=== PATIENT | male | born 1950 | race Caucasian/White ===

== ENCOUNTER 2021-04-08 19:03 | Emergency (ER) | payer OTHER, SELFPAY ==
--- NOTE | ~2021-04-08 | CT_ITS ---
EXAMINATION: HEAD CT WITHOUT CONTRAST CERVICAL SPINE CT WITHOUT CONTRAST CLINICAL INFORMATION: Fall, head trauma. COMPARISON: None. TECHNIQUE: Contiguous axial imaging of the head was performed without the administration of IV contrast. Axial multidetector volumetric images were also performed through the cervical spine without intravenous contrast. Multiplanar reconstructed images in coronal and sagittal orientations were submitted. This CT examination was performed using dose optimization techniques as appropriate, variously including the following: *Automated exposure control *Adjustment of mA and/or kV according to patient size (this includes techniques or standardized protocols for targeted exams where dose is matched to indication/reason for exam; i.e. extremities or head) *Use of iterative reconstruction technique DOSE: 857 and 624 mGy-cm FINDINGS: HEAD: There is no evidence of acute intracranial hemorrhage or territorial infarction. No abnormal mass-effect or midline shift. No extra-axial fluid collections. Bird to white matter differentiation is well preserved. The ventricles are normal in size and configuration. There is no abnormal attenuation within the brain parenchyma. The soft tissues and osseous structures are normal. The sinuses and mastoid air cells are clear. CERVICAL SPINE: Vertebral body heights are normal. No fractures of the vertebral bodies or posterior elements. Vertebral alignment is normal. No subluxation. The craniocervical and atlantoaxial articulations are otherwise normal. Marginal osteophytes are present at the articulation of the dens and the anterior arch of C1. There is moderate degenerative disc disease at C4-C5, C5-C6, and C6-C7 with loss of vertebral disc height, endplate osteophytes, and uncovertebral osteophytes. More mild degenerative disc disease is present at all levels. Facet joints appear relatively well-preserved. Small posterior disc osteophyte bulges the cervical spine at C4-C5, C5-C6 and C6-C7 likely combined with a component of developmental central canal narrowing to produce stenoses, most notably at C4-C5. Uncovertebral osteophytes also contribute to bilateral neural foraminal stenoses at these levels as well. No significant paravertebral soft tissue swelling. Atherosclerotic calcifications are present in the carotid arteries. Imaged portions of the lung apices are clear. CT/CT cervical spine wo con IMPRESSION: 1. No acute intracranial pathology. 2. No acute fracture or malalignment in the cervical spine. 3. Multilevel degenerative disc disease in the cervical spine, most notably from C4-C5 through C6-C7. There are associated central canal or neural foraminal stenoses at these levels.
--- NOTE | ~2021-04-08 | CT_ITS ---
EXAMINATION: CT OF THE THORACIC SPINE WITHOUT CONTRAST CT OF THE LUMBAR SPINE WITHOUT CONTRAST CLINICAL INFORMATION: Back pain. COMPARISON: None. TECHNIQUE: Multidetector volumetric imaging was obtained through the thoracic spine and lumbar spine spine without intravenous contrast. Multiplanar reconstructed images in coronal and sagittal orientations were submitted. This CT examination was performed using dose optimization techniques as appropriate, variously including the following: *Automated exposure control *Adjustment of mA and/or kV according to patient size (this includes techniques or standardized protocols for targeted exams where dose is matched to indication/reason for exam; i.e. extremities or head) *Use of iterative reconstruction technique DOSE: 521 and 400 mGy-cm FINDINGS: Thoracic spine: Vertebral body heights appear normal. No significant chronic compression deformities are identified. There is diffuse ankylosis in the thoracic spine with ossification of the anterior longitudinal ligament and prominent bridging osteophytes, most consistent with diffuse idiopathic skeletal hyperostosis. As seen on sagittal image 59/62 of series 92, there is a transverse lucency through the bridging osteophyte at the right anterolateral aspect of the T6 superior endplate, most concerning for a nondisplaced fracture. This fracture line likely extends into the adjacent disc. No additional fractures are identified at this level. Posterior elements appear intact in this region. There is a nondisplaced fracture through the anterior cortex of the T11 vertebral body with extension into the anterior aspect of the superior endplate as well as questionable fracture of the right lateral bridging osteophyte as well. No appreciable involvement of the posterior or middle columns. No additional fractures are identified in the thoracic spine. There is multilevel facet arthropathy. Mild hyperkyphosis is noted. Central canal appears patent. Dependent atelectasis is present in the lungs. Paraspinal soft tissues are unremarkable. Lumbar spine: There is mild to moderate degenerative disc disease in the upper lumbar spine at L1-L2. Vertebral body heights are normal. No fractures. No spondylolisthesis. Mild multilevel facet arthropathy is present in the lumbar spine. There is at least moderate central canal narrowing in the lumbar spine at the level of L3-L4 and L4-L5 due to disc bulges, ligamentous labrum thickening, and facet arthropathy. Pedicles appear relatively short in the lumbar spine is also likely contributes the central canal narrowing. The short pedicles also produce neural foraminal encroachment which is most notable on the right at L5-S1, though multilevel neural foraminal encroachment is suspected. Calcific atherosclerosis is present in the abdominal aorta and iliac arteries. There is a 3 mm calculus within a calyx in the left lower renal pole. No obstructive uropathy is identified on these images, though the ureters are not fully imaged. CT/CT thoracic spine wo con IMPRESSION: Thoracic spine: 1. Nondisplaced fracture through the anterior cortex of the T11 vertebral body without appreciable involvement of the posterior or middle columns. 2. Nondisplaced fracture through the right anterolateral bridging osteophyte at the T6 superior endplate. No involvement of the posterior or middle columns. 3. Diffuse idiopathic skeletal hyperostosis is ankylosis of much of the thoracic spine. Lumbar spine: Mild to moderate multilevel degenerative spondylosis in the lumbar spine without acute fracture or malalignment. Nonobstructing left nephrolithiasis
--- NOTE | ~2021-04-08 | XR_ITS ---
EXAMINATION: XR HAND/WRIST, LEFT CLINICAL INFORMATION: Pain status post fall. COMPARISON: None TECHNIQUE: PA, lateral, and oblique views of the left hand and wrist. Scaphoid view of the wrist. FINDINGS: No acute fracture or malalignment. Bone mineralization is normal. Minimal osteoarthritis of the first CMC joint. No erosions. Mild soft tissue swelling in the hand. Calcific atherosclerosis in the radial artery. XR/XR hand wrist LT IMPRESSION: No acute fracture or malalignment in the left hand and wrist.
[2021-04-08 19:16] VITALS: BP 150/76; PULSE 80; RESP 18; TEMP 36.8; O2SAT 97; BMI 28.7
--- NOTE | 2021-04-08 19:53 | PC.NURSE ---
Pt from home, CAOx4, speaking full sentences. Pt explains that his blood sugar earlier in the morning was in the 80s, pt self reports taking oral Metformin. Around noon, pt had an episode of feeling weak/dizzy, pt fell onto the floor, injuring his left hand and the right side of his lower back. Pt states that after the fall, his POC was noted to be 70 mg/dl. Pt states he ate a tablespoon of sugar, POC increasing to 105. Pt reports relief of weakness/dizziness once BS increased. Pt arriving to the ED for an eval due to lower back pain and left hand pain after the fall. VSS. Awaiting primary MD eval. Continue to monitor.
[2021-04-08 19:56] LABS: Glucose, Whole Blood 109 mg/dL (60-115)
--- NOTE | 2021-04-08 20:04 | ECG_ITS ---
Test Reason : DIZZINESS/FALL Blood Pressure : / mmHG Vent. Rate : 074 BPM Atrial Rate : 074 BPM P-R Int : 190 ms QRS Dur : 084 ms QT Int : 398 ms P-R-T Axes : 016 -08 -01 degrees QTc Int : 441 ms Normal sinus rhythm Normal ECG No previous ECGs available Referred By: Selina Aquino Electronically Signed By:DAYTON BOB
--- NOTE | 2021-04-08 20:06 | PC.NURSE ---
YARN CONDITIONER at bedside for primary eval.
--- NOTE | 2021-04-08 20:15 | PC.NURSE ---
EKG and labs obtained by this RN. Pt aware of plan for CT and UA. VSS. Continue to monitor.
[2021-04-08 20:20] LABS: MANUAL DIFF FLAG NO
[2021-04-08 20:21] LABS: Basophils Absolute Auto 0.1 X10*3/uL (0.0-0.2); Basophils Percent Auto 0.7 % (0-2); Eosinophils Absolute Auto 0.2 X10*3/uL (0.0-0.4); Eosinophils Percent Auto 2.6 % (0-4); Hematocrit 37.4 % (42-52); Hemoglobin 12.9 g/dl (14.0-18.0); Imm Gran Abs Auto 0.01 X10*3/uL (0.00-0.03); Imm Gran Pct Auto 0.1 % (0.0-0.4); Lymphocytes Absolute Auto 1.9 X10*3/uL (1.2-4.9); Lymphocytes Percent Auto 23.3 % (20-40); Mean Corpuscular HGB Conc 34.5 g/dl (31.0-36.0); Mean Corpuscular Hemoglobin 32.2 pg (27.0-33.0); Mean Corpuscular Volume 93.3 fL (80-98); Mean Platelet Volume 9.7 fL (9.4-12.4); Monocytes Absolute Auto 0.8 X10*3/uL (0.1-1.2); Monocytes Percent Auto 9.7 % (2-11); Neutrophils Absolute Auto 5.2 X10*3/uL (2.0-8.3); Neutrophils Percent Auto 63.6 % (45-73); Platelet Count 231 X10*3/uL (160-400); Red Blood Count 4.01 X10*6/uL (4.60-5.80); Red Cell Distribution Width 11.4 % (11.0-16.0); White Blood Count 8.2 X10*3/uL (4.8-10.8)
--- NOTE | 2021-04-08 20:25 | ED.FALL ---
HPI - Fall General Chief Complaint: Fall Stated Complaint: fall Source: patient Mode of arrival: ambulatory Limitations: no limitations History of Present Illness HPI Narrative: 70-year-old male with past medical history diabetes, hypertension and bipolar disorder presents with lower back pain and headache after a fall. Patient stated that he took his blood sugar earlier this morning and it was 90, he did take his metformin after and not eat very much. Said that at noon time, while he was at his sister's house he fell backward hitting his back and head against the floor. Did not report losing consciousness, but feels that his low blood sugar could have been a contributing factor to his fall. He does report left hand pain did not report any chest pain or pressure, palpitations, changes in vision, abdominal pain, abdominal distention, dysuria, hematuria, symptoms indicating cauda equina, or any other concerning symptoms. MD complaint: fall (.) Onset (ago): hour(s) (Noon) Fall from: standing Fall witnessed: yes, by family Place fall occurred: other (Sister's home) Loss of consciousness: none Prolonged down time: no Symptoms prior to fall: lightheadedness Location of injury: head and back Location of injury - extremities: left: hand Severity: severe Severity scale (1-10): 10 Quality: aching Associated symptoms (after fall): headache and other (Back pain, left hand pain) Related Data Allergies Allergy/AdvReac Type Severity Reaction Status Date / Time sertraline [From ZOLOFT] Allergy Severe VIOLENT Verified 04/08/21 19:16 zolpidem [From AMBIEN] Allergy Severe SLEEP Verified 04/08/21 19:16 WALKING/DRIVING Review of Systems Review of Systems: Constitutional: No Fever, No Chills ENT/Mouth: No Ear Pain, No Hoarseness, No sore throat Eyes: No Eye Pain, No Swelling, No Redness, No Foreign Body Cardiovascular: No Chest Pain, No SOB Respiratory: No Cough, No Dyspnea Gastrointestinal: No Nausea, No Vomiting, No Diarrhea, No abdominal Pain Genitourinary: No Dysuria, No Hematuria Musculoskeletal: positive back and left hand pain, No Myalgias, No Joint Swelling Skin: No Skin lacerations, No rash Neuro: No Weakness, No Numbness, No Paresthesias, No Loss of Consciousness, No Dizziness, No Headache Psych: No Anxiety/Panic, No Depression Heme/Lymph: no easy bruising, no Lymphadenopathy Endocrine: No Polyuria, No Polydipsia Yes all other systems are reviewed and are negative [facility] Past Medical History Attestation statement: The following information was validated with the patient. Source: old records reviewed Medical History Bipolar 1 disorder Diabetes Hypertension Social History Social History Advance Directives: No Advance Directives Information Provided: Yes Physical Exam Vital Signs: Vital Signs: Last Vital Signs Temp 98.0 F 04/08/21 22:00 Pulse 80 04/08/21 22:00 Resp 16 04/08/21 22:00 BP 166/86 H 04/08/21 22:00 Pulse Ox 99 04/08/21 22:00 Body Mass Index 28.7 Appearance: Alert. Oriented X3. Moderate distress. Head: Normal external exam. Normocephalic. Atraumatic. No Weber signs noted. No raccoon eyes noted Eyes: PERRLA. EOMI. Conjunctiva and sclera normal. Eyelids normal. ENT: TM's Normal. Pharynx normal. Uvula midline. Moist mucous membranes. Neck: Normal inspection. Neck supple. No adenopathy. No cervical vertebral tenderness noted. CVS: Normal heart rate and rhythm. Heart sound normal. No murmurs noted. Pulses equal to all extremities. Respiratory: No respiratory distress. Painless inspiration. Lung sounds clear to auscultation all lobes Chest nontender. No accessory muscle usage noted or decreased air movement noted. Abdomen: Soft and nontender. Bowel sounds normal in all 4 quadrants. No distention noted. No organomegaly noted. No visible injury noted. Back: No CVA tenderness. Vertebral tenderness noted to the midthoracic spine, no step-off noted. Skin: Skin warm and dry. Normal skin color. Normal skin turgor. No rashes/lesions/lacerations noted. Extremities: No lower extremity edema. Extremities exhibit normal range of motion. Decreased range of motion to the left hand secondary to pain, no bruising or swelling noted. Neuro: cranial nerves 2-12 intact, no focal neural deficits, strength 5/5 to all extremities, No motor deficit. No sensory deficit. Course Course Course Narrative: 70-year-old male presents to the emergency department for back pain and left hand pain after fall. Stated that he fell backward while at his sister's house, suspected to be because of low blood sugar. This event occurred at noon today, patient did not seek medical attention immediately because he was in [place] and did not feel comfortable going to a hospital in [place]. Patient drove himself to this facility and ambulated in to this facility with a slow steady gait. He did need some assistance to undress. Will order CT scan of head, cervical spine, thoracic and lumbar spine. X-rays of the left hand. Will order lab values. 10:[address] scans indicate nondisplaced fracture of T11 and T6. CT of head and neck are negative. Discussed with hospitalist, plan is to call out to [facility]. 10:40 p.m.. Patient accepted by Dr. Longoria at [facility] for trauma consult. Consultations Consultation #1: Estefanía Time: 22:35 Consultation #2: [facility] Time: 22:40 MDM - Fall Differential Diagnosis Differential diagnosis: Likely syncope, fracture, compression fracture and concussion without loss of consciousness Medical Records Attestation: I reviewed the patient's medical records. Lab Data Attestation: I reviewed the patient's lab results. Result diagrams: 04/08/21 20:11 04/08/21 20:11 Labs: Lab Results 04/08/21 04/08/21 04/08/21 Range/Units 19:47 20:11 20:11 WBC 8.2 (4.8-10.8) X10*3/uL RBC 4.01 L (4.60-5.80) X10*6/uL Hgb 12.9 L (14.0-18.0) g/dl Hct 37.4 L (42-52) % MCV 93.3 (80-98) fL MCH 32.2 (27.0-33.0) pg MCHC 34.5 (31.0-36.0) g/dl RDW 11.4 (11.0-16.0) % Plt Count 231 (160-400) X10*3/uL MPV 9.7 (9.4-12.4) fL Immature Gran % (Auto) 0.1 (0.0-0.4) % Neut % (Auto) 63.6 (45-73) % Lymph % (Auto) 23.3 (20-40) % Valley % (Auto) 9.7 (2-11) % Eos % (Auto) 2.6 (0-4) % Baso % (Auto) 0.7 (0-2) % Lymph # (Auto) 1.9 (1.2-4.9) X10*3/uL Valley # (Auto) 0.8 (0.1-1.2) X10*3/uL Eos # (Auto) 0.2 (0.0-0.4) X10*3/uL Baso # (Auto) 0.1 (0.0-0.2) X10*3/uL Abs Immat Gran (auto) 0.01 (0.00-0.03) X10*3/uL Absolute Neuts (auto) 5.2 (2.0-8.3) X10*3/uL Absolute Nucleated RBC 0.000 (0.0-0.012) X10*3/uL Nucleated RBC % (auto) 0.0 (0.0-0.2) /100WBC PT (9.9-13.0) SEC INR (0.9-1.1) Sodium 138 (135-145) mmol/L Potassium 4.3 (3.3-5.1) mmol/L Chloride 104 (96-108) mmol/L Carbon Dioxide 25 (22-29) mmol/L Anion Gap 13 (12-20) BUN 10 (9-16) mg/dL Creatinine 1.01 (0.5-1.4) mg/dL Estim Creat Clear Calc 78.1 Estimated GFR > 60 POC Glucose 109 (60-115) mg/dL Random Glucose 105 (60-115) mg/dL Calcium 9.2 (8.4-10.2) mg/dL Troponin I High Sens (<3.5-35.0) ng/L 04/08/21 04/08/21 Range/Units 20:11 22:46 WBC (4.8-10.8) X10*3/uL RBC (4.60-5.80) X10*6/uL Hgb (14.0-18.0) g/dl Hct (42-52) % MCV (80-98) fL MCH (27.0-33.0) pg MCHC (31.0-36.0) g/dl RDW (11.0-16.0) % Plt Count (160-400) X10*3/uL MPV (9.4-12.4) fL Immature Gran % (Auto) (0.0-0.4) % Neut % (Auto) (45-73) % Lymph % (Auto) (20-40) % Valley % (Auto) (2-11) % Eos % (Auto) (0-4) % Baso % (Auto) (0-2) % Lymph # (Auto) (1.2-4.9) X10*3/uL Valley # (Auto) (0.1-1.2) X10*3/uL Eos # (Auto) (0.0-0.4) X10*3/uL Baso # (Auto) (0.0-0.2) X10*3/uL Abs Immat Gran (auto) (0.00-0.03) X10*3/uL Absolute Neuts (auto) (2.0-8.3) X10*3/uL Absolute Nucleated RBC (0.0-0.012) X10*3/uL Nucleated RBC % (auto) (0.0-0.2) /100WBC PT 11.9 (9.9-13.0) SEC INR 1.0 (0.9-1.1) Sodium (135-145) mmol/L Potassium (3.3-5.1) mmol/L Chloride (96-108) mmol/L Carbon Dioxide (22-29) mmol/L Anion Gap (12-20) BUN (9-16) mg/dL Creatinine (0.5-1.4) mg/dL Estim Creat Clear Calc Estimated GFR POC Glucose (60-115) mg/dL Random Glucose (60-115) mg/dL Calcium (8.4-10.2) mg/dL Troponin I High Sens < 3.5 (<3.5-35.0) ng/L Imaging Data CT scan of head, cervical spine, thoracic and lumbar spine: Attestation: I personally reviewed and interpreted this imaging study as follows: Radiologist's impression: FINDINGS: HEAD: There is no evidence of acute intracranial hemorrhage or territorial infarction. No abnormal mass-effect or midline shift. No extra-axial fluid collections.? Bird to white matter differentiation is well preserved. The ventricles are normal in size and configuration. ? There is no abnormal attenuation within the brain parenchyma. The soft tissues and osseous structures are normal.? The sinuses and mastoid air cells are clear. CERVICAL SPINE: Vertebral body heights are normal. No fractures of the vertebral bodies or posterior elements. Vertebral alignment is normal. No subluxation. The craniocervical and atlantoaxial articulations are otherwise normal. Marginal osteophytes are present at the articulation of the dens and the anterior arch of C1. There is moderate degenerative disc disease at C4-C5, C5-C6, and C6-C7 with loss of vertebral disc height, endplate osteophytes, and uncovertebral osteophytes. More mild degenerative disc disease is present at all levels. Facet joints appear relatively well-preserved. Small posterior disc osteophyte bulges the cervical spine at C4-C5, C5-C6 and C6-C7 likely combined with a component of developmental central canal narrowing to produce stenoses, most notably at C4-C5. Uncovertebral osteophytes also contribute to bilateral neural foraminal stenoses at these levels as well. No significant paravertebral soft tissue swelling. Atherosclerotic calcifications are present in the carotid arteries. Imaged portions of the lung apices are clear. CT/CT head/brain wo con IMPRESSION: 1. No acute intracranial pathology. 2. No acute fracture or malalignment in the cervical spine. 3. Multilevel degenerative disc disease in the cervical spine, most notably from C4-C5 through C6-C7. There are associated central canal or neural foraminal stenoses at these levels. FINDINGS: Thoracic spine: Vertebral body heights appear normal. No significant chronic compression deformities are identified. There is diffuse ankylosis in the thoracic spine with ossification of the anterior longitudinal ligament and prominent bridging osteophytes, most consistent with diffuse idiopathic skeletal hyperostosis. As seen on sagittal image 59/62 of series 92, there is a transverse lucency through the bridging osteophyte at the right anterolateral aspect of the T6 superior endplate, most concerning for a nondisplaced fracture. This fracture line likely extends into the adjacent disc. No additional fractures are identified at this level. Posterior elements appear intact in this region. There is a nondisplaced fracture through the anterior cortex of the T11 vertebral body with extension into the anterior aspect of the superior endplate as well as questionable fracture of the right lateral bridging osteophyte as well. No appreciable involvement of the posterior or middle columns. No additional fractures are identified in the thoracic spine. There is multilevel facet arthropathy. Mild hyperkyphosis is noted. Central canal appears patent. Dependent atelectasis is present in the lungs. Paraspinal soft tissues are unremarkable. Lumbar spine: There is mild to moderate degenerative disc disease in the upper lumbar spine at L1-L2. Vertebral body heights are normal. No fractures. No spondylolisthesis. Mild multilevel facet arthropathy is present in the lumbar spine. There is at least moderate central canal narrowing in the lumbar spine at the level of L3-L4 and L4-L5 due to disc bulges, ligamentous labrum thickening, and facet arthropathy. Pedicles appear relatively short in the lumbar spine is also likely contributes the central canal narrowing. The short pedicles also produce neural foraminal encroachment which is most notable on the right at L5-S1, though multilevel neural foraminal encroachment is suspected. Calcific atherosclerosis is present in the abdominal aorta and iliac arteries. There is a 3 mm calculus within a calyx in the left lower renal pole. No obstructive uropathy is identified on these images, though the ureters are not fully imaged. CT/CT thoracic spine wo con IMPRESSION: Thoracic spine: 1. Nondisplaced fracture through the anterior cortex of the T11 vertebral body without appreciable involvement of the posterior or middle columns. 2. Nondisplaced fracture through the right anterolateral bridging osteophyte at the T6 superior endplate. No involvement of the posterior or middle columns. 3. Diffuse idiopathic skeletal hyperostosis is ankylosis of much of the thoracic spine. ? Lumbar spine: Mild to moderate multilevel degenerative spondylosis in the lumbar spine without acute fracture or malalignment. Nonobstructing left nephrolithiasis Hand x-ray, wrist x-ray: Attestation: I personally reviewed and interpreted this imaging study as follows: Radiologist's impression: EXAMINATION: XR HAND/WRIST, LEFT CLINICAL INFORMATION: Pain status post fall.? COMPARISON: None? TECHNIQUE: PA, lateral, and oblique views of the left hand and wrist. Scaphoid view of the wrist. FINDINGS: No acute fracture or malalignment. Bone mineralization is normal. Minimal osteoarthritis of the first CMC joint. No erosions. Mild soft tissue swelling in the hand. Calcific atherosclerosis in the radial artery.? XR/XR hand wrist LT IMPRESSION: No acute fracture or malalignment in the left hand and wrist. ECG Data Attestation: I personally reviewed and interpreted this ECG as follows: ECG interpretation date: 04/08/21 ECG interpretation time: 20:14 Interpretation: Vent. rate 74 BPM NC interval 190 ms QRS duration 84 ms QT/QTc 398/441 ms P-R-T axes 16 -8 -1 Normal sinus rhythm Normal ECG No previous ECGs available Scores Heart Score History: -1- moderately suspicious ECG: -1- non specific repolarization disturbance Age: -2- > or = 65 Risk factory: -1- 1 or 2 risk factors Troponin: -0- < or = normal limit Score: 5 Risk: 16.6% Critical Care Time Critical Care Time Critical Care Time: Yes Total Critical Care Time: 65 Attestation: I have personally provided critical care time exclusive of time spent on separately billable procedures. Time includes review of laboratory data, radiology results, discussion with consultants, and monitoring for potential decompensation. Interventions were performed as documented. Discharge Plan Discharge Clinical Impression: Closed fracture of T6 vertebra Qualifiers: Encounter type: initial encounter Fracture morphology: unspecified fracture morphology Qualified Code(s): S22.059A - Unspecified fracture of T5-T6 vertebra, initial encounter for closed fracture Closed fracture of T11 vertebra Qualifiers: Encounter type: initial encounter Fracture morphology: unspecified fracture morphology Qualified Code(s): S22.089A - Unspecified fracture of T11-T12 vertebra, initial encounter for closed fracture Fall Qualifiers: Encounter type: initial encounter Qualified Code(s): W19.XXXA - Unspecified fall, initial encounter [facility]
[2021-04-08 20:42] LABS: Anion Gap 13 (12-20); Blood Urea Nitrogen 10 mg/dL (9-16); Calcium 9.2 mg/dL (8.4-10.2); Carbon Dioxide 25 mmol/L (22-29); Chloride 104 mmol/L (96-108); Creatinine Clr Calc Pharmacy 78.1; Estimated Glomerular Filt Rate > 60; Glucose Random 105 mg/dL (60-115); Potassium 4.3 mmol/L (3.3-5.1); Sodium 138 mmol/L (135-145)
[2021-04-08 20:49] LABS: Troponin-I High Sensitivity < 3.5 ng/L (<3.5-35.0)
--- NOTE | 2021-04-08 21:00 | PC.NURSE ---
Pt returns from XRay/CT on hospital bed without incident. Awaiting results.
[2021-04-08 21:07] VITALS: BP 149/79; PULSE 77; RESP 16
[2021-04-08 22:00] VITALS: BP 166/86; PULSE 80; RESP 16; TEMP 36.7; O2SAT 99
[2021-04-08] MEDS: Morphine Sulfate 4 MG/ML CARTRIDGE IVPUSH (22:48)
--- NOTE | 2021-04-08 22:51 | PC.NURSE ---
IV established x 2. Pt medicated per MAR with Morphine for 10/10 pain. KNIFEMAN consulting [facility] regarding trauma transfer due to T6 and T11 fracture. VSS.
[2021-04-08 22:56] LABS: Prothrombin Time 11.9 SEC (9.9-13.0)
--- NOTE | 2021-04-08 23:04 | PC.NURSE ---
Covviviane obtained. Belongings list completed with LETTY Proctor. Pt noted to have a large amount of ta and a bottle of Clonazepam in his pocket, all documented with RN witness at bedside with pt.
--- NOTE | 2021-04-08 23:09 | PC.NURSE ---
Report given to [facility] RN. Pt awaiting EMS for transport.
[2021-04-08 23:24] LABS: COVID-19 Test Negative (Negative); IDNOW Serial# 9DD0AD1C
--- NOTE | 2021-04-09 00:09 | PC.NURSE ---
EMS at [facility] for transport.
== END 2021-04-09 00:09 | disposition short-term general hospital (02) ==
PROVIDERS: Nurse Practitioner Family; Emergency Provider Emergency Medicine Emergency Medical Services; PCP Internal Medicine Endocrinology, Diabetes & Metabolism
DX: S22.059A Unspecified fracture of T5-T6 vertebra, initial encounter for closed fracture (principal); S22.089A Unspecified fracture of T11-T12 vertebra, initial encounter for closed fracture; W17.89XA Other fall from one level to another, initial encounter; R51.9 Headache, unspecified; M79.642 Pain in left hand; E11.9 Type 2 diabetes mellitus without complications; I10 Essential (primary) hypertension; Y93.89 Activity, other specified; Y92.019 Unspecified place in single-family (private) house as the place of occurrence of the external cause; Y99.9 Unspecified external cause status
CPT/HCPCS: 36415; 70450; 72125; 72128; 72131; 73110; 73130; 80048; 82947; 84484; 85025; 85610; 87635; 93005; 96374; 96375; 99285; 99291; J2270; J2405

== ENCOUNTER 2023-11-01 20:29 | Emergency (ER) | payer OTHER, SELFPAY ==
[2023-11-01 20:36] VITALS: BP 114/59; BP 140/75; PULSE 73; PULSE 80; RESP 17; TEMP 36.6; O2SAT 97; BMI 25.8
[2023-11-01 21:35] LABS: MANUAL DIFF FLAG NO
[2023-11-01 21:36] LABS: Basophils Percent Auto 0.6 % (0-2); Eosinophils Absolute Auto 0.2 X10*3/uL (0.0-0.4); Eosinophils Percent Auto 2.4 % (0-4); Hematocrit 36.8 % (42.0-52.0); Hemoglobin 12.9 g/dl (14.0-18.0); Imm Gran Abs Auto 0.01 X10*3/uL (0.00-0.03); Imm Gran Pct Auto 0.2 % (0.0-0.4); Lymphocytes Absolute Auto 3.1 X10*3/uL (1.2-4.9); Lymphocytes Percent Auto 47.8 % (20-40); Mean Corpuscular HGB Conc 35.1 g/dl (31.0-36.0); Mean Corpuscular Hemoglobin 32.3 pg (27.0-33.0); Mean Corpuscular Volume 92.2 fL (80.0-98.0); Mean Platelet Volume 9.6 fL (9.4-12.4); Monocytes Absolute Auto 0.6 X10*3/uL (0.1-1.2); Monocytes Percent Auto 9.6 % (2-11); Neutrophils Absolute Auto 2.6 x10*3/uL (2.0-8.3); Neutrophils Percent Auto 39.4 % (45-73); Platelet Count 215 X10*3/uL (160-400); Red Blood Count 3.99 X10*6/uL (4.60-5.80); Red Cell Distribution Width 11.5 % (11.0-16.0); White Blood Count 6.6 X10*3/uL (4.8-10.8)
[2023-11-01 21:37] LABS: Appearance Urine Clear; Color Urine Yellow; Glucose Urine UA Negative (Negative); Leukocyte Esterase Urine Trace (Negative); Nitrite Urine Negative (Negative); PH 6.5 (5.0-9.0); Specific Gravity - Urine <= 1.005 (1.005-1.025); UMIC TRIGGER UACC YES; Urine Blood Negative (Negative); Urine Ketones Negative (Negative); Urine Protein Negative (Neg-Trace)
[2023-11-01 21:39] LABS: Bacteria Urine None Seen (None Seen); Hyaline Casts Urine 0-2 /LPF (0-2); RBC Urine 0-2 /HPF (0-2); Squamous Epithelial Cell Urine 0-2 /HPF (0-2); WBC Urine 0-5 /HPF (0-5)
[2023-11-01 21:45] LABS: Amphetamine Screen Urine Not Detected (Not Detect); Barbiturates, Urine Not Detected (Not Detect); Benzodiazepines Screen Urine Not Detected (Not Detect); Cannabinoid Screen Urine Not Detected (Not Detect); Cocaine Screen Urine Not Detected (Not Detect); Fentanyl, urine Not Detected (Not Detect); Opiate Screen Urine Not Detected (Not Detect); Phencyclidine Screen Urine Not Detected (Not Detect)
[2023-11-01 21:49] LABS: Ethanol 145 mg/dL
[2023-11-01 21:50] LABS: Valproate 32.4 mcg/mL (50.0-100.0)
[2023-11-01 21:52] LABS: Alanine Aminotransferase 26 U/L (0-40); Albumin Level 3.7 g/dL (3.5-5.0); Alkaline Phosphatase 54 U/L (39-117); Anion Gap 19 (12-20); Aspartate Amino Transferase 30 U/L (5-37); Bilirubin Total 0.2 mg/dL (0.0-1.0); Blood Urea Nitrogen 7 mg/dL (9-16); Calcium 9.2 mg/dL (8.4-10.2); Carbon Dioxide 19 mmol/L (22-29); Chloride 103 mmol/L (96-108); Estimated Glomerular Filt Rate > 60; Glucose Random 99 mg/dL (60-115); Potassium 4.4 mmol/L (3.3-5.1); Sodium 137 mmol/L (135-145); Total Protein 6.5 g/dL (6.5-8.0)
--- NOTE | 2023-11-01 22:03 | PC.NURSE ---
Completed home medications from list provided by [facility].
--- NOTE | 2023-11-01 22:24 | ED_ITS ---
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 comes here for increased depression with suicidal thoughts without any attempt after coming to ER patient feeling much better denies any suicidal ideation Related Data Home Medications Medication Instructions Recorded Confirmed Bacitracin/Polymyxin See Rx Instructions .Route .COMPLEX 11/01/23 11/01/23 atenolol 25 mg PO DAILY 11/01/23 11/01/23 carboxymethylcellulose 1 drp ophthalmic (eye) QID 11/01/23 11/01/23 cholecalciferol (vitamin D3) 25 mcg PO DAILY 11/01/23 11/01/23 clonazepam 1 mg PO BEDTIME PRN panic disorder 11/01/23 11/01/23 diphenhydramine HCl 50 mg PO BEDTIME PRN Insomnia 11/01/23 11/01/23 divalproex 1,000 mg PO BEDTIME 11/01/23 11/01/23 gemfibrozil 600 mg PO 2XD 11/01/23 11/01/23 magnesium oxide 420 mg PO 2XD 11/01/23 11/01/23 metformin 500 mg PO DAILY 11/01/23 11/01/23 mirtazapine 30 mg PO BEDTIME 11/01/23 11/01/23 nicotine (polacrilex) 4 mg PO Q2H PRN Nicotine Cravings 11/01/23 11/01/23 paliperidone palm (3 month) 546 mg IM [id number] 11/01/23 11/01/23 simvastatin 80 mg PO DAILY 11/01/23 11/01/23 trazodone 100 mg PO BEDTIME PRN Insomnia 11/01/23 11/01/23 Allergies Allergy/AdvReac Type Severity Reaction Status Date / Time sertraline [From ZOLOFT] Allergy Severe VIOLENT Verified 04/08/21 19:16 zolpidem [From AMBIEN] Allergy Severe SLEEP Verified 04/08/21 19:16 WALKING/DRIVING Review of Systems 2 Review of Systems: Yes all other systems are reviewed and are negative PMFSH Past Medical History Medical History Hypertension Bipolar 1 disorder Diabetes Social History Social History Advance Directives: No Advance Directives Information Provided: Yes Healthcare Proxy: No Guardian: No Physical Exam 2 Vital Signs: Vital Signs: Last Vital Signs Temp 97.7 F 11/01/23 23:25 Pulse 71 11/01/23 23:25 Resp 18 11/01/23 23:25 BP 117/69 11/01/23 23:25 Pulse Ox 97 11/01/23 23:25 O2 Del Method Room Air 11/01/23 23:25 BMI result Body Mass Index 25.8 Appearance: Alert. Oriented X3. No acute distress. ETOH+ Eyes: PERRLA, No Nystagmus ENT: Pharynx normal. Oral Mucosa moist Neck: Normal inspection. Neck supple. CVS: Normal heart rate and rhythm. Pulses normal. Respiratory: No respiratory distress. Equal air entry bilateral, no wheezing/rales/rhonchi Abdomen: Soft and nontender. Bowel sounds are present, no mass palpable, no CVA tenderness Skin: Skin warm and dry. Normal skin color. Normal skin turgor. Extremities: No lower extremity edema. No calf tenderness psych: Feels depressed denies any SI or HI at this time Neuro: Oriented X 3. No motor deficit. No sensory deficit.No cerebellar signs , cranial nerves II-XII intact Medications Administered Generic Name Dose Route Start Last Admin Trade Name Freq PRN Reason Stop Dose Admin Clonazepam 1 mg 11/02/23 00:54 11/02/23 01:21 Clonazepam 1 Mg Tablet PO 1 mg BEDTIME PRN Administration panic disorder Medical Decision Making Medical Decision Making MDM Narrative: Patient has increasing depression was sober for 11 years started drinking again asking for any help seen by care team plan for inpatient psych for major depression Differential Diagnosis Differential Diagnoses: The differential diagnosis associated with the presentation includes Major depressive Lab Data [facility] Lab Attestation statement: I reviewed the patient's lab results. 11/01/23 21:24 11/01/23 21:26 Labs: Lab Results 11/01/23 11/01/23 11/01/23 Range/Units 21:24 21:26 21:27 WBC 6.6 (4.8-10.8) X10*3/uL RBC 3.99 L (4.60-5.80) X10*6/uL Hgb 12.9 L (14.0-18.0) g/dl Hct 36.8 L (42.0-52.0) % MCV 92.2 (80.0-98.0) fL MCH 32.3 (27.0-33.0) pg MCHC 35.1 (31.0-36.0) g/dl RDW 11.5 (11.0-16.0) % Plt Count 215 (160-400) X10*3/uL MPV 9.6 (9.4-12.4) fL Immature Gran % (Auto) 0.2 (0.0-0.4) % Neut % (Auto) 39.4 L (45-73) % Lymph % (Auto) 47.8 H (20-40) % [place] % (Auto) 9.6 (2-11) % Eos % (Auto) 2.4 (0-4) % Baso % (Auto) 0.6 (0-2) % Lymph # (Auto) 3.1 (1.2-4.9) X10*3/uL [place] # (Auto) 0.6 (0.1-1.2) X10*3/uL Eos # (Auto) 0.2 (0.0-0.4) X10*3/uL Baso # (Auto) 0.0 (0.0-0.2) X10*3/uL Abs Immat Gran (auto) 0.01 (0.00-0.03) X10*3/uL Absolute Neuts (auto) 2.6 (2.0-8.3) x10*3/uL Absolute Nucleated RBC 0.000 (0.0-0.012) X10*3/uL Nucleated RBC % (auto) 0.0 (0.0-0.2) /100WBC Sodium 137 (135-145) mmol/L Potassium 4.4 (3.3-5.1) mmol/L Chloride 103 (96-108) mmol/L Carbon Dioxide 19 L (22-29) mmol/L Anion Gap 19 (12-20) BUN 7 L (9-16) mg/dL Creatinine 0.65 (0.5-1.4) mg/dL Estim Creat Clear Calc 106.0 Estimated GFR > 60 POC Glucose (60-115) mg/dL Random Glucose 99 (60-115) mg/dL Calcium 9.2 (8.4-10.2) mg/dL Total Bilirubin 0.2 (0.0-1.0) mg/dL AST 30 (5-37) U/L ALT 26 (0-40) U/L Alkaline Phosphatase 54 (39-117) U/L Total Protein 6.5 (6.5-8.0) g/dL Albumin 3.7 (3.5-5.0) g/dL Urine Color Yellow Urine Appearance Clear Urine pH 6.5 (5.0-9.0) Ur Specific [place] <= 1.005 (1.005-1.025) Urine Protein Negative (Neg-Trace) mg/dL Urine Glucose (UA) Negative (Negative) mg/dL Urine Ketones Negative (Negative) mg/dL Urine Blood Negative (Negative) Urine Nitrite Negative (Negative) Ur Leukocyte Esterase Trace H (Negative) Urine RBC 0-2 (0-2) /HPF Urine WBC 0-5 (0-5) /HPF Ur Squamous Epith Cells 0-2 (0-2) /HPF Urine Bacteria None Seen (None Seen) Hyaline Casts 0-2 (0-2) /LPF Urine Opiates Screen Not Detected (Not Detect) Urine Fentanyl Screen Not Detected (Not Detect) Ur Barbiturates Screen Not Detected (Not Detect) Valproic Acid 32.4 L (50.0-100.0) mcg/mL Ur Phencyclidine Scrn Not Detected (Not Detect) Ur Amphetamines Screen Not Detected (Not Detect) U Benzodiazepines Scrn Not Detected (Not Detect) Urine Cocaine Screen Not Detected (Not Detect) U Marijuana (THC) Screen Not Detected (Not Detect) Ethyl Alcohol 145 mg/dL 11/01/23 Range/Units 23:28 WBC (4.8-10.8) X10*3/uL RBC (4.60-5.80) X10*6/uL Hgb (14.0-18.0) g/dl Hct (42.0-52.0) % MCV (80.0-98.0) fL MCH (27.0-33.0) pg MCHC (31.0-36.0) g/dl RDW (11.0-16.0) % Plt Count (160-400) X10*3/uL MPV (9.4-12.4) fL Immature Gran % (Auto) (0.0-0.4) % Neut % (Auto) (45-73) % Lymph % (Auto) (20-40) % [place] % (Auto) (2-11) % Eos % (Auto) (0-4) % Baso % (Auto) (0-2) % Lymph # (Auto) (1.2-4.9) X10*3/uL [place] # (Auto) (0.1-1.2) X10*3/uL Eos # (Auto) (0.0-0.4) X10*3/uL Baso # (Auto) (0.0-0.2) X10*3/uL Abs Immat Gran (auto) (0.00-0.03) X10*3/uL Absolute Neuts (auto) (2.0-8.3) x10*3/uL Absolute Nucleated RBC (0.0-0.012) X10*3/uL Nucleated RBC % (auto) (0.0-0.2) /100WBC Sodium (135-145) mmol/L Potassium (3.3-5.1) mmol/L Chloride (96-108) mmol/L Carbon Dioxide (22-29) mmol/L Anion Gap (12-20) BUN (9-16) mg/dL Creatinine (0.5-1.4) mg/dL Estim Creat Clear Calc Estimated GFR POC Glucose 96 (60-115) mg/dL Random Glucose (60-115) mg/dL Calcium (8.4-10.2) mg/dL Total Bilirubin (0.0-1.0) mg/dL AST (5-37) U/L ALT (0-40) U/L Alkaline Phosphatase (39-117) U/L Total Protein (6.5-8.0) g/dL Albumin (3.5-5.0) g/dL Urine Color Urine Appearance Urine pH (5.0-9.0) Ur Specific [place] (1.005-1.025) Urine Protein (Neg-Trace) mg/dL Urine Glucose (UA) (Negative) mg/dL Urine Ketones (Negative) mg/dL Urine Blood (Negative) Urine Nitrite (Negative) Ur Leukocyte Esterase (Negative) Urine RBC (0-2) /HPF Urine WBC (0-5) /HPF Ur Squamous Epith Cells (0-2) /HPF Urine Bacteria (None Seen) Hyaline Casts (0-2) /LPF Urine Opiates Screen (Not Detect) Urine Fentanyl Screen (Not Detect) Ur Barbiturates Screen (Not Detect) Valproic Acid (50.0-100.0) mcg/mL Ur Phencyclidine Scrn (Not Detect) Ur Amphetamines Screen (Not Detect) U Benzodiazepines Scrn (Not Detect) Urine Cocaine Screen (Not Detect) U Marijuana (THC) Screen (Not Detect) Ethyl Alcohol mg/dL Discharge Plan Discharge Clinical Impression: Depression Patient Disposition: Still a Patient Prescriptions: No Action atenolol 25 mg PO DAILY carboxymethylcellulose 1 drp ophthalmic (eye) QID cholecalciferol (vitamin D3) 25 mcg PO DAILY clonazepam 1 mg PO BEDTIME PRN (Reason: panic disorder) diphenhydramine HCl 50 mg PO BEDTIME PRN (Reason: Insomnia) Rx Instructions: Alternate with trazodone divalproex 1,000 mg PO BEDTIME gemfibrozil 600 mg PO 2XD magnesium oxide 420 mg PO 2XD metformin 500 mg PO DAILY mirtazapine 30 mg PO BEDTIME nicotine (polacrilex) 4 mg PO Q2H PRN (Reason: Nicotine Cravings) paliperidone palm (3 month) 546 mg IM [id number] simvastatin 80 mg PO DAILY trazodone 100 mg PO BEDTIME PRN (Reason: Insomnia) Bacitracin/Polymyxin See Rx Instructions .ROUTE .COMPLEX Rx Instructions: Apply thin ribbon into each eye at bedtime for eye infection Interventions: [place]-Suicide Risk Severity Scale Last Done: 11/01/23 22:31
[2023-11-01 23:25] VITALS: BP 117/69; PULSE 71; RESP 18; TEMP 36.5; O2SAT 97
[2023-11-01 23:33] LABS: Glucose, Whole Blood 96 mg/dL (60-115)
--- NOTE | 2023-11-02 | ECG_ITS ---
Test Reason : QT INTERVAL Blood Pressure : / mmHG Vent. Rate : 092 BPM Atrial Rate : 092 BPM P-R Int : 164 ms QRS Dur : 080 ms QT Int : 364 ms P-R-T Axes : 054 008 -10 degrees QTc Int : 450 ms Normal sinus rhythm Inferior infarct , age undetermined Abnormal ECG When compared with ECG of 08-APR-2021 20:14, No significant change was found Referred By: Khoi Lechuga Electronically Signed By:RICCO CAI MD
[2023-11-02] MEDS: clonazePAM 1 MG TABLET PO ×2 (01:21→20:15)
[2023-11-02 07:40] VITALS: RESP 16
--- NOTE | 2023-11-02 08:00 | PC.NURSE ---
Assumed care of patient at 0700, patient appears to be sleeping, respirations even and unlabored, appears to be in no apparent distress at this time. Plan of care for Sec 12 inpt admission
--- NOTE | 2023-11-02 08:35 | PC.NURSE ---
late entry: called pharmacy for [facility] @[phone]
[2023-11-02] MEDS: Atorvastatin Calcium 40 MG TABLET PO (09:20)
[2023-11-02] MEDS: Magnesium Oxide 400 MG TABLET PO ×2 (09:20→20:14)
[2023-11-02] MEDS: Cholecalciferol (Vitamin D3) 25 MCG TABLET PO (09:21)
[2023-11-02] MEDS: gemfibroziL 600 MG TABLET PO ×2 (09:21→18:16)
[2023-11-02] MEDS: metFORMIN HCl 500 MG TABLET PO (09:21)
[2023-11-02 09:23] VITALS: BP 101/66; PULSE 116; RESP 16; TEMP 36.8; O2SAT 96
[2023-11-02] MEDS: LORazepam 1 MG TABLET PO (09:40)
[2023-11-02 10:36] LABS: COVID-19 Test Negative (Negative); IDNOW Serial# 08D9AD1C
[2023-11-02] MEDS: OLANZapine 10 MG TABLET PO (12:11)
--- NOTE | 2023-11-02 12:51 | PC.NURSE ---
late entry: patient reporting increased anxiety. intial dose of ativan given per MAR. Pt reporting no help, requesting something else. MD Gu ordered 10mg Zyprexa which was administered per MAR, pt now appears to be sleeping, respirations even and unlabored, no apparent distress
--- NOTE | 2023-11-02 17:32 | PC.NURSE ---
Pt had uneventful day so far, offering no complaints, ambulating independently around BH pod, verbally making needs known. Pt offers no complaints at this time, now resting in bed, respirations even and unlabored, no apparent distress. Continue plan of care for inpt admission
--- NOTE | 2023-11-02 18:24 | MHC.CARE ---
RAD Team conducted a statewide bed search for this pt. No [facility] beds are available, bes search is exhausted and will resume tomorrow. Ptt referral was sent to [facility] for their waitlist
[2023-11-02 20:09] VITALS: BP 129/69; PULSE 87; RESP 18; TEMP 36.8; O2SAT 96
[2023-11-02] MEDS: Divalproex Sodium ER 500 MG TAB.ER.24H 1000 MG PO (20:14)
[2023-11-02] MEDS: Mirtazapine 30 MG TABLET PO (20:14)
--- NOTE | 2023-11-02 20:56 | PC.NURSE ---
Assumed care of pt at 1900. PT alert and oriented, in no acute distress resting in bed. PT medicated as per NOV. Safety precautions in place. Plan of care ongoing
[2023-11-02] MEDS: traZODone HCL 50 MG TABLET 100 MG PO (23:06)
--- NOTE | 2023-11-03 00:28 | PC.NURSE ---
Care team assessed PT. Martin on the care team sts that PT would like to go home tomorrow and that [facility] staff said that he should stay the night and would be in support of pt going home in the morning. This RN noted that she heard staff tell pt that they recommended pt to stay for a medication adjustment. Martin states that PT has a med provider and could call them to schedule an appointment. PT denies SI/HI. First [place] scale was high risk and subsequent ones were low risk. PT states this is because he has calmed down significantly. Plan is for pt to be discharged in the morning. PT states that [facility] can pick him up but if not Charge can arrange for a lyft (there will not be any care team members during first and second shift)
[2023-11-03 06:34] VITALS: BP 166/92; PULSE 91; RESP 17; TEMP 36.5; O2SAT 97
[2023-11-03] MEDS: atenoloL 25 MG TABLET PO (06:37)
--- NOTE | 2023-11-03 06:39 | PC.NURSE ---
PT bp elevated. Notified Provider and given the Ok to administer bp medication early.
--- NOTE | 2023-11-03 06:57 | PC.NURSE ---
Assumed care of patient at 0700, patient appears to be sleeping at this time, respirations even and unlabored, no apparent distress. Continue plan of care for [facility]-psych bedsearch
[2023-11-03] MEDS: metFORMIN HCl 500 MG TABLET PO (08:22)
[2023-11-03] MEDS: gemfibroziL 600 MG TABLET PO ×2 (08:22→16:16)
[2023-11-03] MEDS: Cholecalciferol (Vitamin D3) 25 MCG TABLET PO (08:23)
[2023-11-03] MEDS: Magnesium Oxide 400 MG TABLET PO ×2 (08:23→19:41)
[2023-11-03] MEDS: Atorvastatin Calcium 40 MG TABLET PO (08:23)
[2023-11-03] MEDS: clonazePAM 1 MG TABLET PO ×2 (14:27→23:03)
[2023-11-03 17:16] LABS: Estimated Glomerular Filt Rate > 60
--- NOTE | 2023-11-03 18:42 | MHC.CARE ---
RAD team conducted a statewide [place] bed search. Referral being reviewed?by Rap[facility]. RAD team to f/u with facilities to see outcome
[2023-11-03] MEDS: Mirtazapine 30 MG TABLET PO (19:41)
[2023-11-03] MEDS: Divalproex Sodium ER 500 MG TAB.ER.24H 1000 MG PO (19:41)
[2023-11-03] MEDS: traZODone HCL 50 MG TABLET 100 MG PO (19:41)
[2023-11-03 19:49] VITALS: BP 146/83; PULSE 78; RESP 18; TEMP 36.7; O2SAT 97
--- NOTE | 2023-11-04 05:55 | PC.NURSE ---
Patient slept through the night, no distress observed/reported, medication compliant, no behavior issues, disposition per care team section 12 inpatient bed search, VSS, will continue to monitor.
[2023-11-04 06:05] VITALS: RESP 16
[2023-11-04] MEDS: atenoloL 25 MG TABLET PO (08:41)
[2023-11-04] MEDS: Atorvastatin Calcium 40 MG TABLET PO (08:41)
[2023-11-04] MEDS: metFORMIN HCl 500 MG TABLET PO (08:41)
[2023-11-04] MEDS: Magnesium Oxide 400 MG TABLET PO (08:41)
[2023-11-04] MEDS: gemfibroziL 600 MG TABLET PO ×2 (08:41→17:51)
[2023-11-04] MEDS: Cholecalciferol (Vitamin D3) 25 MCG TABLET PO (08:42)
[2023-11-04] MEDS: clonazePAM 1 MG TABLET PO ×2 (08:46→17:54)
[2023-11-04 11:57] VITALS: BP 104/60; PULSE 71; RESP 15; TEMP 36.3; O2SAT 96
[2023-11-04 12:30] LABS: Influenza A PCR NEGATIVE (Negative); Influenza B PCR NEGATIVE (Negative); Resp Syncy Virus RNA Qual PCR NEGATIVE (Negative); SARS COV2 PCR INHOUSE NEGATIVE (Negative)
--- NOTE | 2023-11-04 15:22 | MHC.CARE ---
RAD Team sent pt referral packet to [facility], [facility]. [facility] later today (11/04).
--- NOTE | 2023-11-04 18:54 | MHC.CARE ---
Pt is accepted to [facility], accept is [facility]o [facility]ur[facility] transport coming within the next 15-20 minutes
== END 2023-11-04 19:14 | disposition skilled nursing facility (03) ==
PROVIDERS: Emergency Provider Internal Medicine
DX: F32.9 Major depressive disorder, single episode, unspecified (principal); R45.851 Suicidal ideations; Z11.52 Encounter for screening for COVID-19; Z20.828 Contact with and (suspected) exposure to other viral communicable diseases; Z79.899 Other long term (current) drug therapy
CPT/HCPCS: 0241U; 36415; 80053; 80164; 80307; 81001; 82565; 82947; 85025; 87635; 93005; 99285; S9485

== ENCOUNTER → 2023-11-02 10:10 | Outpatient (BNV) | payer OTHER, SELFPAY | PROVIDERS: Emergency Provider Internal Medicine; Visit Provider Internal Medicine Cardiovascular Disease | DX: R94.31 Abnormal electrocardiogram [ECG] [EKG] (principal) | CPT/HCPCS: 93010 ==

== ENCOUNTER 2024-10-11 15:33 | Emergency (ER) | payer OTHER, SELFPAY ==
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
--- NOTE | ~2024-10-11 | CT_ITS ---
CLINICAL HISTORY: neck trauma CT cervical spine without contrast Comparison: CT - CT CERVICAL SPINE WO CON - 04/08/21 20:30 EDT Findings: Normal vertebral body alignment. Multilevel degenerative change of the cervical spine, progressed in comparison to 2020. No acute fractures or dislocations. No acute findings on limited view of the intracranial contents. No cervical fluid collections or masses. No consolidation or effusion at the lung apices. IMPRESSION: No acute findings. This document has been electronically signed by: Rich Marshall MD on 10/11/2024 18:52:22
--- NOTE | ~2024-10-11 | XR_ITS ---
CLINICAL HISTORY: weakness 1 view chest x-ray Comparison: None Findings: No consolidation or effusion. Heart size is normal. No acute fracture. IMPRESSION: 1. No acute findings. This document has been electronically signed by: Rich Marshall MD on 10/11/2024 20:40:30
[2024-10-11 15:55] VITALS: BP 124/83; PULSE 80; O2SAT 100; BMI 27.3
[2024-10-11 16:00] VITALS: BP 120/63; PULSE 78; RESP 17; TEMP 36.9; O2SAT 97
--- NOTE | 2024-10-11 16:08 | ECG_ITS ---
Test Reason : FALL Blood Pressure : */* mmHG Vent. Rate : 77 BPM Atrial Rate : 77 BPM P-R Int : 168 ms QRS Dur : 88 ms QT Int : 436 ms P-R-T Axes : 7 -3 -4 degrees QTcB Int : 493 ms Normal sinus rhythm Nonspecific T wave abnormality Abnormal ECG When compared with ECG of 02-Nov-2023 10:10, No significant change was found Referred By: Elissa Becerra Electronically Signed By: Shawn Townsend
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
[2024-10-11 16:35] LABS: Glucose, Whole Blood 124 mg/dL (60-115)
[2024-10-11 16:57] LABS: MANUAL DIFF FLAG NO
[2024-10-11 17:00] LABS: Basophils Percent Auto 0.5 % (0-2); Eosinophils Absolute Auto 0.4 X10*3/uL (0.0-0.4); Eosinophils Percent Auto 4.4 % (0-4); Hematocrit 37.2 % (42.0-52.0); Imm Gran Abs Auto 0.04 X10*3/uL (0.00-0.03); Imm Gran Pct Auto 0.5 % (0.0-0.4); Lymphocytes Absolute Auto 2.7 X10*3/uL (1.2-4.9); Lymphocytes Percent Auto 33.7 % (20-40); Mean Corpuscular HGB Conc 34.9 g/dl (31.0-36.0); Mean Corpuscular Hemoglobin 34.3 pg (27.0-33.0); Mean Corpuscular Volume 98.2 fL (80.0-98.0); Mean Platelet Volume 9.5 fL (9.4-12.4); Monocytes Absolute Auto 0.9 X10*3/uL (0.1-1.2); Monocytes Percent Auto 11.7 % (2-11); Neutrophils Absolute Auto 3.9 x10*3/uL (2.0-8.3); Neutrophils Percent Auto 49.2 % (45-73); Platelet Count 216 X10*3/uL (160-400); Red Blood Count 3.79 X10*6/uL (4.60-5.80); Red Cell Distribution Width 11.9 % (11.0-16.0)
[2024-10-11 17:32] LABS: Troponin-I High Sensitivity < 2.7 ng/L (<3.5-35.0)
[2024-10-11 17:37] VITALS: BP 134/60; PULSE 77; RESP 17; TEMP 35.7; O2SAT 100
[2024-10-11 17:38] LABS: Alanine Aminotransferase 39 U/L (0-40); Albumin Level 3.7 g/dL (3.5-5.0); Anion Gap 16 (12-20); Aspartate Amino Transferase 53 U/L (5-37); Bilirubin Direct 0.2 mg/dL (0.0-0.5); Bilirubin Total 0.3 mg/dL (0.0-1.0); Blood Urea Nitrogen 31 mg/dL (9-16); Calcium 9.2 mg/dL (8.4-10.2); Carbon Dioxide 23 mmol/L (22-29); Chloride 103 mmol/L (96-108); Creatinine Clr Calc Pharmacy 57.5; Estimated Glomerular Filt Rate > 60; Ethanol < 10 mg/dL; Glucose Random 95 mg/dL (60-115); Lipase 30 U/L (8-78); Magnesium 1.8 mg/dL (1.6-2.6); Potassium 3.4 mmol/L (3.3-5.1); Sodium 139 mmol/L (135-145); Total Protein 7.2 g/dL (6.5-8.0)
[2024-10-11 17:54] LABS: Alkaline Phosphatase 56 U/L (39-117)
[2024-10-11] MEDS: Morphine Sulfate 4 MG/ML CARTRIDGE IM (19:12)
[2024-10-11 19:29] LABS: Ammonia 33 umol/L (13-55)
[2024-10-11 19:32] LABS: Valproate 41.8 mcg/mL (50.0-100.0)
--- NOTE | 2024-10-11 20:00 | PC.NURSE ---
pt ambulated well to CT/XR
[2024-10-11 20:20] VITALS: BP 134/76; PULSE 74; RESP 18; O2SAT 99
--- NOTE | 2024-10-11 21:21 | MHC.EDTECH ---
complete bed change and changed pt. pt given a urinal
[2024-10-11 22:00] VITALS: BP 137/82; PULSE 79; RESP 18
[2024-10-11 22:49] VITALS: BP 137/82; PULSE 79; RESP 18; TEMP 36.7; O2SAT 99
== END 2024-10-11 23:09 | disposition home or self-care (01) ==
PROVIDERS: Emergency Provider Emergency Medicine
DX: S05.11XA Contusion of eyeball and orbital tissues, right eye, initial encounter (principal); S00.81XA Abrasion of other part of head, initial encounter; R94.31 Abnormal electrocardiogram [ECG] [EKG]; M54.2 Cervicalgia; R51.9 Headache, unspecified; R07.89 Other chest pain; M54.50 Low back pain, unspecified; V47.5XXA Car driver injured in collision with fixed or stationary object in traffic accident, initial encounter; Y93.9 Activity, unspecified; Y92.410 Unspecified street and highway as the place of occurrence of the external cause; Y99.8 Other external cause status; Z79.899 Other long term (current) drug therapy; Z51.81 Encounter for therapeutic drug level monitoring
CPT/HCPCS: 36415; 70450; 71045; 72100; 72125; 80048; 80076; 80164; 80307; 82140; 82550; 82947; 83690; 83735; 84484; 85025; 93005; 96372; 99284; J2270

== ENCOUNTER → 2024-10-11 16:08 | Outpatient (BNV) | payer OTHER, SELFPAY | PROVIDERS: Emergency Provider Emergency Medicine; Visit Provider Radiology Diagnostic Radiology | DX: S14.109A Unspecified injury at unspecified level of cervical spinal cord, initial encounter (principal); S09.90XA Unspecified injury of head, initial encounter; M54.50 Low back pain, unspecified; M62.81 Muscle weakness (generalized) | CPT/HCPCS: 70450; 71045; 72100; 72125 ==

== ENCOUNTER → 2024-10-11 16:08 | Outpatient (BNV) | payer OTHER, SELFPAY | PROVIDERS: Emergency Provider Emergency Medicine; Visit Provider Internal Medicine Cardiovascular Disease | DX: R94.31 Abnormal electrocardiogram [ECG] [EKG] (principal) | CPT/HCPCS: 93010 ==